=== PATIENT | female | born 2000 | race Caucasian/White ===

== ENCOUNTER → 2024-08-29 08:09 | Outpatient (REF) | payer BC, SELFPAY | LOC: RCS 08:09 | PROVIDERS: ATTENDING PHYSICIAN Internal Medicine Cardiovascular Disease; FAMILY PHYSICIAN Student in an Organized Health Care Education/Training Program | DX: R55 Syncope and collapse (principal) | CPT/HCPCS: 93306 ==

== ENCOUNTER 2024-09-17 14:08 | Emergency (ER) | payer BC, SELFPAY ==
[2024-09-17 14:26] VITALS: BP 120/77
--- NOTE | 2024-09-17 14:31 | ED.GENMED ---
History of Present Illness
General
Chief Complaint: Rabies
Source: patient
Exam Limitations: none
Time Seen by Provider: 09/17/24 14:30
Nursing documentation reviewed up to this point in time: agreed with
History of Present Illness
History of Present Illness:
24-year-old female with no significant past medical history is here for a rabies vaccine booster to be updated for [employer].
Past History
Past History
ED Past Medical History: None
Social History
Tobacco: Non-smoker
Personal: Single
Living: with family
Review of Systems
Review of Systems
Allergies reviewed?: Yes
All Other Systems: ROS reviewed and negative except as documented in HPI and ROS
Phy Exam
Physical Exam
Physical Exam:
PHYSICAL EXAMINATION:
General: no apparent distress, not acutely ill
Neuro: alert and oriented.
Psychiatric: well kept. interactive and cooperative
Musculoskeletal: Moves with ease
Skin: Warm, pink.
Course
Orders/Labs/Results
Orders:
Orders
09/17/24 15:00
Rabies Vaccine ([facility])/Pf [Rabavert Rabies Vacc W-Diluent] 2.5 unit IM .ONCE ONE
Vital Signs
Initial and Last Documented VS:
Initial Vital Signs
Temp Pulse Resp BP Pulse Ox
98.5 F 67 18 120/77 100
09/17/24 14:26 09/17/24 14:26 09/17/24 14:26 09/17/24 14:26 09/17/24 14:26
Last Documented Vital Signs
Temp Pulse Resp BP Pulse Ox
98.5 F 67 18 120/77 100
09/17/24 14:26 09/17/24 14:26 09/17/24 14:26 09/17/24 14:26 09/17/24 14:32
*Pulse Oximetry
SaO2: 100
Oxygen Mode of Delivery: Room air
Patient hypoxic: not evaluated
*Critical Care Note
Total Time (30-74mins, 75-104mins- exclusive of procedures): Not Applicable
ED Attending Note
-
Portions of this chart may have been created with voice recognition software.� Occasional wrong word or��sound alike� substitutions may have occurred due to the inherent limitations of voice recognition software.
Discharge Plan
Departure
Patient Disposition: Home (Routine Discharge)
Date of Disposition: 09/17/24
Time of Disposition: 14:36
Patient with high blood pressure during this ER visit?: No
Condition: Good
Discharge Problem:
Rabies vaccine administered
Stand Alone Forms: Rabies Vaccine Post Exp Dosing
Interventions
Interventions:
*Risk Screen - Suicide Last Done: 09/17/24 14:26
*General Assessment Last Done: 09/17/24 14:26
*Neglect/Abuse Screening Last Done: 09/17/24 14:26
*ED- Fall Risk Assessment Last Done: 09/17/24 14:26
*ED COVID-19 Vaccine History Last Done: 09/17/24 14:26
Discharge Date and Time
Print Language: BENGALI
[2024-09-17] MEDS: RABAVERT RABIES VACC W-DILUENT 2.5 UNIT IM (15:00)
== END 2024-09-17 15:08 | disposition home or self-care (01) ==
LOC: EMR 14:08
PROVIDERS: EMERGENCY PHYSICIAN Emergency Medicine; FAMILY PHYSICIAN Family Medicine
DX: Z20.3 Contact with and (suspected) exposure to rabies (principal); Z23 Encounter for immunization
CPT/HCPCS: 90471; 99281; 90675